=== PATIENT | male | born 1990 | race Caucasian/White ===

== ENCOUNTER 2018-02-08 16:56 | Emergency (ER) | payer OTHER ==
[2018-02-08] MEDS: CEPHALEXIN 500 MG CAP PO (20:15)
== END 2018-02-08 20:26 | disposition home or self-care (01) ==
LOC: M ED 16:56
DX: S91.331A Puncture wound without foreign body, right foot, initial encounter (principal); W26.8XXA Contact with other sharp object(s), not elsewhere classified, initial encounter; Y92.9 Unspecified place or not applicable; Y93.9 Activity, unspecified; Y99.9 Unspecified external cause status
CPT/HCPCS: 73630

== ENCOUNTER 2018-06-20 20:07 | Emergency (ER) | payer OTHER ==
[2018-06-20] MEDS: BACLOFEN 10 MG TAB PO (21:21)
[2018-06-20] MEDS: KETOROLAC 60 MG/2 ML VIAL (J1885) IM (21:21)
== END 2018-06-20 22:39 | disposition home or self-care (01) ==
LOC: M ED 20:07
DX: S39.012A Strain of muscle, fascia and tendon of lower back, initial encounter (principal); M62.830 Muscle spasm of back; X58.XXXA Exposure to other specified factors, initial encounter; Y92.89 Other specified places as the place of occurrence of the external cause; M54.9 Dorsalgia, unspecified; Z79.899 Other long term (current) drug therapy
CPT/HCPCS: J1885

== ENCOUNTER → 2018-07-20 | Outpatient (REF) | payer OTHER ==
[2018-07-20 15:01] LABS: SEMEN APPEARANCE OPAQUE (OPAQUE)
[2018-07-20 15:02] LABS: % NORMAL FORMS 6 % (>=4); IMMOTILITY 62 %; NON PROGRESSIVE MOTILITY (c) 9 %; PROGRESSIVE MOTILITY (a) 29 % (>=32); SEMEN VISCOSITY LIQUID (LIQUID); SEMEN pH 8.5 (7.0-8.0); SPERM CONCENTRATION 63.3 M/ml (>=15.0); TOTAL MOTILITY 38 % (>=40); WBC CONCENTRATION <=1 M/ml (<=1 M/ml)
[2018-07-20 15:03] LABS: SPERM# 253.4 M/Ejac (>=39); TOTAL FUNCTIONAL 10.6 M/Ejac.; TOTAL PROGRESSIVE SPERM 72.9 M/Ejac.
== END ==
LOC: M LAB REF 14:47
DX: N46.8 Other male infertility (principal)